=== PATIENT | male | born 1940 | race African-American/Black ===

== ENCOUNTER 2019-01-25 18:04 | Inpatient (IN) | payer OTHER ==
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
[2019-01-25 20:10] LABS: ARTERIAL BLD GAS O2 SATURATION 56.9 % (95-98); ARTERIAL BLOOD GAS BASE EXCESS 5.6 meq/l (-2-2); ARTERIAL BLOOD GAS pH 7.26 (7.35-7.45)
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
[2019-01-25 20:15] LABS: ARTERIAL BLOOD GAS PCO2 76.8 mmHg (35-45)
[2019-01-25 20:16] LABS: ARTERIAL BLOOD GAS PO2 36.9 mmHg (80-105)
[2019-01-25 20:21] LABS: ALLENS TEST POSITIVE
[2019-01-25 23:32] LABS: BASO % 0.2 % (0-2.0); HEMATOCRIT 29.3 % (35.4-49); HEMOGLOBIN 9.3 GM/dL (11.7-16.9); LYMPH % 31.9 % (8-40); MCH 27.8 pg (25.7-33.7); MCHC 31.9 g/dl (32.0-35.9); MEAN PLT VOLUME 7.3 fl (7.5-11.1); MONO % 12.9 % (3.8-10.2); PLATELET COUNT 305 K/MM3 (134-434); RBC 3.37 M/mm3 (4.00-5.60); RDW 17.4 % (11.9-15.9); WHITE BLOOD COUNT 4.4 K/mm3 (4.0-10.0)
[2019-01-25 23:38] LABS: ARTERIAL BLOOD GAS BASE EXCESS 5.6 meq/l (-2-2); ARTERIAL BLOOD GAS PO2 89.3 mmHg (80-105); ARTERIAL BLOOD GAS pH 7.28 (7.35-7.45); CARBOXYHEMOGLOBIN 1.8 % (0-2)
[2019-01-25 23:48] LABS: ARTERIAL BLOOD GAS PCO2 73.4 mmHg (35-45)
[2019-01-25 23:49] LABS: ALLENS TEST POSITIVE
[2019-01-25 23:52] LABS: ALBUMIN 2.4 g/dl (3.4-5.0); ALK PHOS 69 U/L (45-117); ANION GAP 2 MMOL/L (8-16); BILIRUBIN,TOTAL 0.3 mg/dL (0.2-1); BLOOD UREA NITROGEN 11 mg/dL (7-18); CALCIUM 8.1 mg/dL (8.5-10.1); CHLORIDE 102 mmol/L (98-107); CO2 34 mmol/L (21-32); CREATININE 0.6 mg/dL (0.55-1.3); GLUCOSE,RANDOM 68 mg/dL (74-106); N-TERMINAL BNP 1295.9 pg/ml (5-450); POTASSIUM 4.5 mmol/L (3.5-5.1); SGOT/AST 19 U/L (15-37); SGPT/ALT 13 U/L (13-61); SODIUM 139 mmol/L (136-145); TOT PROT 7.7 g/dl (6.4-8.2)
[2019-01-26 00:12] LABS: INR 1.21 (0.83-1.09); PROTHROMBIN TIME (PATIENT) 14.3 SEC (9.7-13.0)
[2019-01-26 00:15] LABS: ACTIVATED PTT 69.9 SECONDS (25.2-36.5)
--- NOTE | 2019-01-26 01:27 | PN ---
Teaching Attending Note Name of Resident: Mathew Garsia ATTENDING PHYSICIAN STATEMENT I saw and evaluated the patient. I reviewed the resident's note and discussed the case with the resident. I agree with the resident's findings and plan as documented. SUBJECTIVE: Seen and examined; please refer to resident note for further historical information. Briefly, patient is a 78 y/o male who was sent in by his PCP for low O2 sat 84% in the office. He has some SOB worse with exertion, change in his sputum to yellow, and increased cough. No recent abx, etc. He is a current heroin abuser and is on methadone 70 QD and his last heroin use was yesterday. He is noted to have LE edema with concurrent venous stasis changes and he is furthermore noted that he is on home lasix. He has an elevated BNP. He does have CAD and was stented ~1yr ago and is on ASA and plavix. He is, unfortunately, a poor historian and his family left (who provided hx for resident and ED) so I didn't have a chance to confirm it. He was placed on BiPap when he got to the ER and was given a dose of lasix and some nebs and he improved; CT chest shows multiple nodular infiltrates and advanced emphysematous changes that are likely infectious vs. malignant per the prelim read. He was weaned from BiPap and is satting high 90s on NC. 10 sys ROS done and negative aside from HPI PMH, PSH, Family Hx, Social Hx reviewed Medication list reviewed; pending reconciliation Home Medications Medication Instructions Recorded Albuterol Sulfate Inhaler - 1 - 2 inh PO QID PRN 04/11/14 [Ventolin HFA Inhaler -] Atorvastatin Calcium 80 mg PO DAILY 01/26/19 Clopidogrel Bisulfate [Plavix -] 75 mg PO DAILY 01/26/19 Ferrous Sulfate 325 mg PO ASDIR 01/26/19 Furosemide [Lasix -] 40 mg PO DAILY 01/26/19 Metoprolol Tartrate [Lopressor -] 25 mg PO BID 01/26/19 Multivitamins [Tab-A-Vit -] 1 tab PO DAILY 01/26/19 OBJECTIVE: VS, labs, imaging reviewed NAD, AAO, Resting in bed off BiPap NC AT EOMI; some temporal wasting B/l wheezes with some scattered mild rales with no focal consolidation; w/ sym exp NT ND +BS RRR s1/2 no mgr CN2-12 wnl, no fnd Normal mood, appropriate affect, poor insight and difficult to understand speech Prelim CT shows advanced emphysematous changes with multiple nodular infiltrates that could be infectious, but with some nodular components what could lead to consideration of underlying neoplasm ASSESSMENT AND PLAN: Patient presented with mixed respiratory failure found to be desatting in PCP office; now weaned off BiPap. He is hemodynamically stable and afebrile. Cause of his respiratory issues likely COPD exacerbation with fluid overload +/ - CAP vs. underlying malignancy 1) Acute Respiratory Failure -Improved; based on ABG and hx has a strong chronic component to his respiratory failure with some acute input. -PRN O2; I suspect he will need to be on alf O2 and he should be checked for this prior to DC -Treat underlying conditions (to be addressed separately) 2) Acute COPD Exacerbation -PRN O2; PO prednisone 60 QD, doxycycline PO given prolonged QTc, ATC duonebs and PRN albuterol -Consulting pulmonary medicine (Dr. Cruz) for medication optimization. He will need LABA/LAMA, etc. on DC most likely. No PFTs available. -Counseled to stop smoking 3) Acute CHF Exacerbation -Elevated BNP, edema. Monitor strict Is and Os, daily weights. Low sodium diet and fluid restriction. -Lasix 40 IV QD and consider CV consult; checking echo. Want to obtain old records (he is unsure of the name of his primry CV and hasn't followed up with him in 'a while') -Consider switching MT to MS and adding GIN/ARB as BP and renal function permits. Depending on severity of CHF can also consider spironolactone and hydralazine. -Given his stated history of stenting would assume ischemic cardiomyopathy though he has multiple risk factors for NICM. Need to obtain additional info. 4) Nodular infiltrates (PNA vs. malignancy) -Seen on prelim CT chest; followup final read. Does have productive cough but notably he is afebrile with a normal white count. -Empirically covering with ceftriaxone and azithro for CAP and will also consult oncology. Pulmonary is also following and we will defer further diagnostic testing to their service. -Followup sputum cx, blood cx, urine Ag, influenza, viral pcr 5) Heroin Abuse -Confirm and continue methadone, encourage cessasion -Checking Hep C and HIV screen 6) Cocaine abuse -At risk for NICM and sudden cardiac ; no current chest pain. Could have precipitated CHF. 7) Tobacco abuse -Encourage cesssion 8) Hypoalbuminemia -Check prealbumin and consider nutrition consult 9) Normocytic anemia -Trend CBC when inpatient; consider checking iron studies inpt vs. outpt 10) Hx CAD -States he was stented last year; continue ASA, statin, BB, and plavix. Obtain old records when he finds out who his OP cardio is. No chest pain. Has multiple risk factors. FENA -2l fluid restriction -PRN replete; optimize Mg and K -Cardiac Diet with low salt -As tolerated Full Code
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
[2019-01-26] MEDS ORDERED: ALBUTEROL SO4 8 GM HFA INHALER IH PRN (02:40)
[2019-01-26] MEDS ORDERED: DEXTROSE 50%-WATER - 25 GM/50 ML VIAL IVPUSH ONE (02:42)
[2019-01-26] MEDS ORDERED: FUROSEMIDE 40 MG/4 ML INJECTABLE VIAL IVPUSH ONE (02:43)
[2019-01-26] MEDS ORDERED: ALBUTEROL SO4 2.5/IPRATROPIUM 0.5 INH SOL 3 ML VIAL.NEB. NEB PRN (02:45)
[2019-01-26] MEDS ORDERED: FUROSEMIDE 40 MG/4 ML INJECTABLE VIAL ONE (02:49)
[2019-01-26 03:59] LABS: BASO % 0.3 % (0-2.0); EOS % 0.6 % (0-4.5); HEMATOCRIT 30.8 % (35.4-49); HEMOGLOBIN 9.8 GM/dL (11.7-16.9); LYMPH % 20.1 % (8-40); MCH 27.7 pg (25.7-33.7); MCHC 31.7 g/dl (32.0-35.9); MEAN CELL VOLUME 87.2 fl (80-96); MEAN PLT VOLUME 7.4 fl (7.5-11.1); MONO % 8.9 % (3.8-10.2); NEUT % 70.1 % (42.8-82.8); PLATELET COUNT 323 K/MM3 (134-434); RBC 3.53 M/mm3 (4.00-5.60); RDW 17.9 % (11.9-15.9); WHITE BLOOD COUNT 6.2 K/mm3 (4.0-10.0)
[2019-01-26 04:27] LABS: ALBUMIN 2.5 g/dl (3.4-5.0); ALK PHOS 72 U/L (45-117); ANION GAP 3 MMOL/L (8-16); BILIRUBIN,TOTAL 0.6 mg/dL (0.2-1); BLOOD UREA NITROGEN 11 mg/dL (7-18); CALCIUM 8.2 mg/dL (8.5-10.1); CHLORIDE 99 mmol/L (98-107); CO2 34 mmol/L (21-32); CREATININE 0.6 mg/dL (0.55-1.3); GLUCOSE,RANDOM 123 mg/dL (74-106); POTASSIUM 3.9 mmol/L (3.5-5.1); SGOT/AST 18 U/L (15-37); SGPT/ALT 13 U/L (13-61); SODIUM 136 mmol/L (136-145); TOT PROT 8.2 g/dl (6.4-8.2)
[2019-01-26] MEDS: METOPROLOL TARTRATE 25 MG TABLET (FP) PO SCH ×2 (09:40→22:32)
[2019-01-26] MEDS: guaiFENesin 600 MG TABLET.ER (FP) PO SCH ×2 (09:40→22:34)
[2019-01-26] MEDS: predniSONE 20 MG TABLET (UD) PO SCH (09:40)
[2019-01-26] MEDS ORDERED: CEFTRIAXONE 1 GM/50 ML BAG ONE (09:42)
[2019-01-26 09:45] LABS: INR 1.17 (0.83-1.09); PROTHROMBIN TIME (PATIENT) 13.8 SEC (9.7-13.0)
[2019-01-26 09:53] LABS: ARTERIAL BLD GAS O2 SATURATION 97.6 % (95-98); ARTERIAL BLOOD GAS BASE EXCESS 8.8 meq/l (-2-2); ARTERIAL BLOOD GAS PCO2 63.1 mmHg (35-45); ARTERIAL BLOOD GAS PO2 99.6 mmHg (80-105); ARTERIAL BLOOD GAS pH 7.37 (7.35-7.45)
[2019-01-26 09:55] LABS: ALLENS TEST POSITIVE
[2019-01-26] MEDS: NICOTINE 21 MG/24 HOURS TOPICAL PATCH TD SCH (10:00)
[2019-01-26] MEDS ORDERED: CEFTRIAXONE 1 GM in DEXTROSE 5%-WATER - 100 ML IVPB SCH (10:00)
[2019-01-26] MEDS ORDERED: AZITHROMYCIN 250 MG TABLET PO SCH (10:00)
[2019-01-26] MEDS ORDERED: DOXYCYCLINE INJECTION 100 MG in DEXTROSE 5%-WATER - 100 ML IVPB ONE (10:00)
[2019-01-26] MEDS ORDERED: DOXYCYCLINE INJECTION 100 MG in DEXTROSE 5%-WATER - 100 ML IVPB SCH (10:00)
[2019-01-26] MEDS ORDERED: FUROSEMIDE 40 MG/4 ML INJECTABLE VIAL IVPB SCH (10:00)
[2019-01-26] MEDS: POLYETHYLENE GLYCOL 3350 119 GM BTL PO SCH (10:00)
[2019-01-26] MEDS: CEFTRIAXONE 1 GM in DEXTROSE 5%-WATER - 50 ML IVPB SCH (10:11)
--- NOTE | 2019-01-26 10:24 | PN ---
Physical Exam: SUBJECTIVE: Patient seen and examined at bedside- no acute events overnight; patient states that he is feeling better thinks that his breathing has improved ; he denies any CP/SOB/N/V fevers or chills just complains that he is hungry OBJECTIVE: Vital Signs Period Temp Pulse Resp BP Sys/Joseph Pulse Ox Last 24 Hr 97.9 F-98.6 F 73-92 20-20 122-149/74-87 84-100 GENERAL: The patient is awake, alert, and fully oriented, in no acute distress. EYES: PEERLA: EOMI; no scleral icterus NECK: no JVD: no lymphadenopathy. LUNGS:B/L wheezes with slight crackles at base HEART: Regular rate and rhythm, S1, S2 without murmur, rub or gallop. ABDOMEN: Soft, nontender, nondistended, normoactive bowel sounds, no guarding, no rebound, no hepatosplenomegaly, no masses. EXTREMITIES: 2+ pulses, warm, well-perfused, no edema. PSYCH: Normal mood, normal affect. SKIN: Warm, dry, normal turgor, no rashes or lesions noted Laboratory Results - last 24 hr 01/25/19 01/25/19 01/25/19 19:50 20:00 22:07 WBC RBC Hgb Hct MCV MCH MCHC RDW Plt Count MPV Absolute Neuts (auto) Neutrophils % Lymphocytes % Monocytes % Eosinophils % Basophils % Nucleated RBC % PT with INR INR PTT (Actin FS) Anticoagulation Therapy No Result Required. Puncture Site Right radial Right radial ABG pH 7.26 L 7.28 L ABG pCO2 at Pt Temp 76.8 H* 73.4 H* ABG pO2 at Pt Temp 36.9 L* 89.3 ABG HCO3 33.6 H 33.2 H ABG O2 Sat (Measured) 56.9 L 96.0 ABG O2 Content 6.9 L* 11.8 L ABG Base Excess 5.6 H 5.6 H Luca Test Positive Positive Carboxyhemoglobin 2.0 1.8 Methemoglobin 0.6 0.2 O2 Delivery Device No Result Required. Bipap Oxygen Flow Rate Yes 40 Vent Mode No Result Required. S/t Vent Rate No Result Required. 14 Mechanical Rate No Result Required. PEEP 5.0 Pressure Support Vent No Result Required. 10 Sodium Potassium Chloride Carbon Dioxide Anion Gap BUN Creatinine Creat Clearance w eGFR POC Glucometer Random Glucose Calcium Phosphorus Magnesium Ferritin Total Bilirubin AST ALT Alkaline Phosphatase Creatine Kinase Troponin I B-Natriuretic Peptide Total Protein Albumin Influenza A (Rapid) Influenza B (Rapid) RSV Rapid 01/25/19 01/25/19 01/25/19 22:40 22:40 22:40 WBC 4.4 RBC 3.37 L Hgb 9.3 L Hct 29.3 L MCV 87.0 MCH 27.8 MCHC 31.9 L RDW 17.4 H Plt Count 305 MPV 7.3 L Absolute Neuts (auto) 2.4 Neutrophils % 54.0 Lymphocytes % 31.9 D Monocytes % 12.9 H Eosinophils % 1.0 Basophils % 0.2 Nucleated RBC % 0 PT with INR 14.30 H INR 1.21 H PTT (Actin FS) 69.9 H Anticoagulation Therapy Puncture Site ABG pH ABG pCO2 at Pt Temp ABG pO2 at Pt Temp ABG HCO3 ABG O2 Sat (Measured) ABG O2 Content ABG Base Excess Luca Test Carboxyhemoglobin Methemoglobin O2 Delivery Device Oxygen Flow Rate Vent Mode Vent Rate Mechanical Rate PEEP Pressure Support Vent Sodium 139 Potassium 4.5 Chloride 102 Carbon Dioxide 34 H Anion Gap 2 L BUN 11 Creatinine 0.6 Creat Clearance w eGFR 130.30 POC Glucometer Random Glucose 68 L Calcium 8.1 L Phosphorus Magnesium Ferritin Total Bilirubin 0.3 AST 19 ALT 13 Alkaline Phosphatase 69 Creatine Kinase 83 Troponin I < 0.02 B-Natriuretic Peptide 1295.9 H Total Protein 7.7 Albumin 2.4 L Influenza A (Rapid) Influenza B (Rapid) RSV Rapid 01/26/19 01/26/19 01/26/19 02:36 03:05 03:05 WBC 6.2 RBC 3.53 L Hgb 9.8 L Hct 30.8 L MCV 87.2 MCH 27.7 MCHC 31.7 L RDW 17.9 H Plt Count 323 MPV 7.4 L Absolute Neuts (auto) 4.3 Neutrophils % 70.1 D Lymphocytes % 20.1 D Monocytes % 8.9 Eosinophils % 0.6 Basophils % 0.3 Nucleated RBC % 0 PT with INR INR PTT (Actin FS) Anticoagulation Therapy Puncture Site ABG pH ABG pCO2 at Pt Temp ABG pO2 at Pt Temp ABG HCO3 ABG O2 Sat (Measured) ABG O2 Content ABG Base Excess Luca Test Carboxyhemoglobin Methemoglobin O2 Delivery Device Oxygen Flow Rate Vent Mode Vent Rate Mechanical Rate PEEP Pressure Support Vent Sodium Potassium Chloride Carbon Dioxide Anion Gap BUN Creatinine Creat Clearance w eGFR POC Glucometer 66 Random Glucose Calcium Phosphorus Magnesium Ferritin Total Bilirubin AST ALT Alkaline Phosphatase Creatine Kinase Troponin I < 0.02 B-Natriuretic Peptide Total Protein Albumin Influenza A (Rapid) Influenza B (Rapid) RSV Rapid 01/26/19 01/26/19 01/26/19 03:05 06:20 06:20 WBC RBC Hgb Hct MCV MCH MCHC RDW Plt Count MPV Absolute Neuts (auto) Neutrophils % Lymphocytes % Monocytes % Eosinophils % Basophils % Nucleated RBC % PT with INR INR PTT (Actin FS) Anticoagulation Therapy Puncture Site ABG pH ABG pCO2 at Pt Temp ABG pO2 at Pt Temp ABG HCO3 ABG O2 Sat (Measured) ABG O2 Content ABG Base Excess Luca Test Carboxyhemoglobin Methemoglobin O2 Delivery Device Oxygen Flow Rate Vent Mode Vent Rate Mechanical Rate PEEP Pressure Support Vent Sodium 136 Potassium 3.9 Chloride 99 Carbon Dioxide 34 H Anion Gap 3 L BUN 11 Creatinine 0.6 Creat Clearance w eGFR 130.30 POC Glucometer Random Glucose 123 H Calcium 8.2 L Phosphorus Magnesium 2.0 Ferritin Total Bilirubin 0.6 AST 18 ALT 13 Alkaline Phosphatase 72 Creatine Kinase Troponin I B-Natriuretic Peptide Total Protein 8.2 Albumin 2.5 L Influenza A (Rapid) Negative Influenza B (Rapid) Negative RSV Rapid Negative 01/26/19 01/26/19 01/26/19 09:15 09:15 09:15 WBC RBC Hgb Hct MCV MCH MCHC RDW Plt Count MPV Absolute Neuts (auto) Neutrophils % Lymphocytes % Monocytes % Eosinophils % Basophils % Nucleated RBC % PT with INR 13.80 H INR 1.17 H PTT (Actin FS) 68.0 H Anticoagulation Therapy Puncture Site ABG pH ABG pCO2 at Pt Temp ABG pO2 at Pt Temp ABG HCO3 ABG O2 Sat (Measured) ABG O2 Content ABG Base Excess Luca Test Carboxyhemoglobin Methemoglobin O2 Delivery Device Oxygen Flow Rate Vent Mode Vent Rate Mechanical Rate PEEP Pressure Support Vent Sodium Potassium Chloride Carbon Dioxide Anion Gap BUN Creatinine Creat Clearance w eGFR POC Glucometer Random Glucose Calcium Phosphorus 4.1 Magnesium Ferritin 27.0 Total Bilirubin AST ALT Alkaline Phosphatase Creatine Kinase Troponin I B-Natriuretic Peptide Total Protein Albumin Influenza A (Rapid) Influenza B (Rapid) RSV Rapid 01/26/19 01/26/19 09:15 09:43 WBC RBC Hgb Hct MCV MCH MCHC RDW Plt Count MPV Absolute Neuts (auto) Neutrophils % Lymphocytes % Monocytes % Eosinophils % Basophils % Nucleated RBC % PT with INR INR PTT (Actin FS) Anticoagulation Therapy No Result Required. Puncture Site Right radial ABG pH 7.37 ABG pCO2 at Pt Temp 63.1 H ABG pO2 at Pt Temp 99.6 ABG HCO3 35.3 H ABG O2 Sat (Measured) 97.6 ABG O2 Content 13.2 L ABG Base Excess 8.8 H Luca Test Positive Carboxyhemoglobin Methemoglobin O2 Delivery Device No Result Required. Oxygen Flow Rate Yes Vent Mode No Result Required. Vent Rate No Result Required. Mechanical Rate No Result Required. PEEP Pressure Support Vent No Result Required. Sodium Potassium Chloride Carbon Dioxide Anion Gap BUN Creatinine Creat Clearance w eGFR POC Glucometer Random Glucose Calcium Phosphorus Magnesium Ferritin Total Bilirubin AST ALT Alkaline Phosphatase Creatine Kinase Troponin I < 0.02 B-Natriuretic Peptide Total Protein Albumin Influenza A (Rapid) Influenza B (Rapid) RSV Rapid Active Medications Generic Name Dose Route Start Last Admin Trade Name Freq PRN Reason Stop Dose Admin Albuterol Sulfate 2 puff 01/26/19 02:40 Ventolin Hfa Inhaler - IH QID PRN ASTHMA Albuterol/Ipratropium 1 amp 01/26/19 02:45 Duoneb - NEB Q4H PRN SHORTNESS OF BREATH Atorvastatin Calcium 80 mg 01/26/19 22:00 Lipitor - PO HS SHAWN Budesonide/Formoterol Fumarate 2 puff 01/26/19 10:00 Symbicort 160/4.5mcg - IH BID SHAWN Clopidogrel Bisulfate 75 mg 01/26/19 10:00 Plavix - PO DAILY SHAWN Enoxaparin Sodium 40 mg 01/26/19 10:00 Lovenox - SQ DAILY SHAWN Furosemide 40 mg 01/26/19 10:00 01/26/19 10:10 Lasix Injection - IVPB 40 mg DAILY SHAWN Administration Guaifenesin 600 mg 01/26/19 10:00 01/26/19 09:40 Mucinex - PO 600 mg BID SHAWN Administration Doxycycline Hyclate 100 mg/ 100 mls @ 50 mls/hr 01/26/19 10:00 Dextrose IVPB BID SHAWN Ceftriaxone Sodium 1 gm/ 50 mls @ 100 mls/hr 01/26/19 10:00 01/26/19 10:11 Dextrose IVPB 100 mls/hr DAILY SHAWN Administration Protocol Metoprolol Tartrate 25 mg 01/26/19 10:00 01/26/19 09:40 Lopressor - PO 25 mg BID SHAWN Administration Nicotine 21 mg 01/26/19 10:00 01/26/19 10:00 Nicoderm Patch - TD Not Given DAILY SHAWN Polyethylene Glycol 17 gm 01/26/19 10:00 01/26/19 10:00 Miralax (For Daily Use) - PO Not Given DAILY SHAWN Prednisone 60 mg 01/26/19 10:00 01/26/19 09:40 Deltasone - PO 60 mg DAILY SHAWN Administration Senna 2 tab 01/26/19 22:00 Senna - PO HS SHAWN ASSESSMENT/PLAN: 78 year old male (current smoker- 10 cigarettes per day), with PMH of heroin dependency 2-3 bags daily , HTN, HLD, COPD, 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 # Acute on chronic hypoxic hypercapnic resp failure likely due to copd exacerbation vs CHF exacerbation R/o PNA and malignancy * ABG this AM improving: PH 7.37, PCO2 63.1 HCO3 35.3 * duo neb , Albuterol * Symbicort BID * CXR pending official reading * CT chest done showing severe COPD w/ areas of consolidation and scattered bullae likely chronic however cannot exclude acute infection /malignancy * BIPAP as needed to keep O2 sat > 90 % * BNP 71105 : given lasix 40 once in ED- not continuing home lasix as this is COPD exacerbation not CHF * Echo done showing EF 40-45%; severe inferolateral hypokinesis; normal RV function; mild MR, mild TR no effusion seen * ceftriaxone 1 gram daily , doxycycline 100 BID as has prolonged QTC * mucinex 600 BID * prednisone 60 po daily * pulmonary consult Dr Cruz # normocytic Anemia * H/H 9.3/29.3 * no active bleeding * likely due to chronic disease vs low intake * iron studies , Ferritin * FOBT * # History of Hep c per old records * f.o out pt * no transaminitis no abdominal pain * Hep C PCR * hIV screening # HTN * c/w lopressor 25 BID # HLD * c/w Atorvastatin 80 mg daily * # CAD s/p stent * Cont ASA , plavix * cont metoprolol tartarate 25 BID * obtain records * # Heroin dependence * 2-3 bags heroin daily , * On methadone 70 mg (verified this AM) * consult detox * # tobacco dependence * 1/2 PPD * nicotine patch * # FEN * F: no standing fluids * E: monitor lytes * N: low sodium diet Problem List - Problems (1) Acute hypercapnic respiratory failure Code(s): J96.02 - ACUTE RESPIRATORY FAILURE WITH HYPERCAPNIA (2) COPD (chronic obstructive pulmonary disease) Code(s): J44.9 - CHRONIC OBSTRUCTIVE PULMONARY DISEASE, UNSPECIFIED Qualifiers: COPD type: unspecified COPD Qualified Code(s): J44.9 - Chronic obstructive pulmonary disease, unspecified (3) Hepatitis C Code(s): B19.20 - UNSPECIFIED VIRAL HEPATITIS C WITHOUT HEPATIC COMA Qualifiers: Viral hepatitis chronicity: chronic (4) Nicotine dependence Code(s): F17.200 - NICOTINE DEPENDENCE, UNSPECIFIED, UNCOMPLICATED Qualifiers: Nicotine product type: cigarettes Visit type - Emergency Visit Emergency Visit: Yes ED Registration Date: 01/25/19 Care time: The patient presented to the Emergency Department on the above date and was hospitalized for further evaluation of their emergent condition. - New Patient This patient is new to me today: Yes Date on this admission: 01/26/19 - Critical Care Critical Care patient: No
[2019-01-26] MEDS: CLOPIDOGREL BISULFATE 75 MG TABLET (FP) PO SCH (10:31)
[2019-01-26] MEDS: ENOXAPARIN NA (PORCINE) 40 MG/0.4 ML DISP.SYRIN SQ SCH (10:31)
[2019-01-26] MEDS: BUDESONIDE/FORMETEROL FUMARATE 160/4.5 mcg INHALER IH SCH ×2 (10:32→22:50)
--- NOTE | 2019-01-26 10:37 | ECHO ---
Name: JS PALM Exam:Adult Echocardiogram Study Date: 01/26/2019 07:47 AM Age: 78 yrs Reason For Study: CHF Height: 69 in Weight: 120 lb BSA: 1.7 m2 MMode/2D Measurements & Calculations IVSd: 0.85 cm Ao root diam: 3.7 cm LVIDd: 4.8 cm LA dimension: 3.0 cm LVIDs: 3.8 cm LVPWd: 0.84 cm EDV(Teich): 107.7 ml LVOT diam: 2.6 cm ESV(Teich): 60.3 ml Doppler Measurements & Calculations MV E max mani: 78.5 cm/sec AI P1/2t: 581.9 msec MV A max mani: 92.3 cm/sec MV E/A: 0.85 MV dec time: 0.33 sec AI max mani: 344.2 cm/sec TR max mani: 311.6 cm/sec AI max P.4 mmHg TR max P.9 mmHg AI dec slope: 173.2 cm/sec2 Med Peak E' Mani: 2.9 cm/sec Med E/e': 27.5 Lat Peak E' Mani: 7.1 cm/sec Lat E/e': 11.0 Left Ventricle Ejection Fraction = 40-45%. Severe inferolateral hypokinesis. Right Ventricle The right ventricle is normal in size and function. Atria Normal left and right atrial size and function. Mitral Valve The mitral valve is grossly normal. There is no mitral valve stenosis. There is mild mitral regurgita tion. Tricuspid Valve The tricuspid valve is normal in structure and function. There is mild tricuspid regurgitation. Right ventricular systolic pressure is elevated at 40-50mmHg. Aortic Valve The aortic valve is trileaflet. No hemodynamically significant valvular aortic stenosis. Mild aortic regurgitation. Pulmonic Valve The pulmonic valve is not well seen, but is grossly normal. There is no pulmonic valvular stenosis. Great Vessels Mild aortic root dilatation. Pericardium/Pleura There is no pericardial effusion. Interpretation Summary Ejection Fraction = 40-45%. Severe inferolateral hypokinesis. Mild aortic root dilatation. The right ventricle is normal in size and function. There is mild mitral regurgitation. There is mild tricuspid regurgitation. Right ventricular systolic pressure is elevated at 40-50mmHg. Mild aortic regurgitation. There is no pericardial effusion. MD Urias *Lakshmi 01/26/2019 10:37 AM
--- NOTE | 2019-01-26 10:58 | EKG ---
Test Reason : Blood Pressure : / mmHG Vent. Rate : 073 BPM Atrial Rate : 073 BPM P-R Int : 164 ms QRS Dur : 078 ms QT Int : 460 ms P-R-T Axes : 048 034 068 degrees QTc Int : 506 ms POOR DATA QUALITY, INTERPRETATION MAY BE ADVERSELY AFFECTED NORMAL SINUS RHYTHM PROLONGED QT ABNORMAL ECG Confirmed by GAMALIEL LOPEZ MD ([id number]) on 01/26/2019 10:58:12 AM Referred By: Confirmed By:GAMALIEL LOPEZ MD
--- NOTE | 2019-01-26 11:03 | EKG ---
Test Reason : Blood Pressure : / mmHG Vent. Rate : 080 BPM Atrial Rate : 080 BPM P-R Int : 162 ms QRS Dur : 082 ms QT Int : 430 ms P-R-T Axes : 058 075 087 degrees QTc Int : 495 ms NORMAL SINUS RHYTHM WITH SINUS ARRHYTHMIA POSSIBLE LEFT ATRIAL ENLARGEMENT PROLONGED QT ABNORMAL ECG Confirmed by GAMALIEL LOPEZ MD ([id number]) on 01/26/2019 11:03:32 AM Referred By: Confirmed By:GAMALIEL LOPEZ MD
[2019-01-26] MEDS ORDERED: METHADONE HCL 10 MG TABLET PO SCH (11:06)
--- NOTE | 2019-01-26 17:15 | CON.PULM ---
Consult Consult Specialty:: PULMONARY Referred by:: JADON Reason for Consultation:: HYPOXIC - History of Present Illness History of Present Illness: patient is a 78 y/o male who was sent in by his PCP for low O2 sat 84%, sob worse with exertion, change in his sputum to yellow, and increased cough. 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 He has h/o CAD and was stented ~1yr ago and is on ASA and plavix. He was placed on BiPap when he got to the ER and was given a dose of lasix and nebs. - History Source History Provided By: Medical Record Limitations to Obtaining History: Clinical Condition - Past Medical History Cardio/Vascular: Yes: CAD, Other (STENTS) Pulmonary: Yes: COPD, Pneumonia. No: O2 Dependent Heme/Onc: Yes: Anemia Psych: Yes: Addictions - Alcohol/Substance Use Hx Alcohol Use: No - Smoking History Smoking history: Current every day smoker Have you smoked in the past 12 months: Yes Aproximately how many cigarettes per day: 10 - Social History Usual Living Arrangement: Other Place of : [facility] History of Recent Travel: No Home Medications - Allergies Allergies/Adverse Reactions: Allergies Allergy/AdvReac Type Severity Reaction Status Date / Time No Known Allergies Allergy Verified 01/26/19 02:11 - Home Medications Home Medications: Ambulatory Orders Albuterol Sulfate Inhaler - [Ventolin HFA Inhaler -] 1 - 2 inh PO QID PRN Atorvastatin Calcium 80 mg PO DAILY 01/26/19 Clopidogrel Bisulfate [Plavix -] 75 mg PO DAILY 01/26/19 Ferrous Sulfate 325 mg PO ASDIR 01/26/19 Furosemide [Lasix -] 40 mg PO DAILY 01/26/19 Metoprolol Tartrate [Lopressor -] 25 mg PO BID 01/26/19 Multivitamins [Tab-A-Vit -] 1 tab PO DAILY 01/26/19 Family Disease History - Family Disease History Family History: Unable to Obtain Review of Systems Unable to obtain ROS, reason: UNABLE TO OBTAIN Physical Exam Vital Sings: Vital Signs Temperature 97.9 F 01/26/19 15:57 Pulse Rate 90 01/26/19 15:57 Respiratory Rate 18 01/26/19 15:57 Blood Pressure 146/94 01/26/19 15:57 O2 Sat by Pulse Oximetry (%) 100 01/26/19 16:41 Constitutional: Yes: Cachectic, Poor Hygeine, Other (LETHARGIC) Eyes: Yes: EOM Intact HENT: Yes: Normocephalic Neck: Yes: Trachea Midline Cardiovascular: Yes: S1, S2 Respiratory: Yes: Diminished Gastrointestinal: Yes: Normal Bowel Sounds Edema: No Neurological: Yes: Lethargy, Pre-Existing Deficit, Weakness Labs: CBC, BMP 01/26/19 03:05 01/26/19 03:05 ABG Results ABG pH 7.37 (7.35-7.45) 01/26/19 09:43 ABG pCO2 at Pt Temp 63.1 mmHg (35-45) H 01/26/19 09:43 ABG pO2 at Pt Temp 99.6 mmHg (80-105) 01/26/19 09:43 ABG HCO3 35.3 mmol/L (22-27) H 01/26/19 09:43 ABG O2 Sat (Measured) 97.6 % (95-98) 01/26/19 09:43 ABG O2 Content 13.2 % vol (15-22) L 01/26/19 09:43 ABG Base Excess 8.8 meq/l (-2-2) H 01/26/19 09:43 REST REVIEWED Imaging - Results Chest X-ray: Report Reviewed, Image Reviewed Cat Scan: Report Reviewed, Image Reviewed Problem List - Problems (1) Heroin addiction Code(s): F11.20 - OPIOID DEPENDENCE, UNCOMPLICATED (2) Acute hypercapnic respiratory failure Code(s): J96.02 - ACUTE RESPIRATORY FAILURE WITH HYPERCAPNIA (3) COPD (chronic obstructive pulmonary disease) Code(s): J44.9 - CHRONIC OBSTRUCTIVE PULMONARY DISEASE, UNSPECIFIED Qualifiers: COPD type: unspecified COPD Qualified Code(s): J44.9 - Chronic obstructive pulmonary disease, unspecified (4) Hepatitis C Code(s): B19.20 - UNSPECIFIED VIRAL HEPATITIS C WITHOUT HEPATIC COMA Qualifiers: Viral hepatitis chronicity: chronic (5) Nicotine dependence Code(s): F17.200 - NICOTINE DEPENDENCE, UNSPECIFIED, UNCOMPLICATED Qualifiers: Nicotine product type: cigarettes (6) Opioid dependence with withdrawal Code(s): F11.23 - OPIOID DEPENDENCE WITH WITHDRAWAL Assessment/Plan ACUTE ON CHRONIC HYPERCAPNEIC RESP FAILURE COPD/ACTIVE SMOKER HERION ABUSE/METHADONE MAINTENANCE ASHD/CAD S/P PCI STENT WILL LIKELY NEED NIPPV/O2 SUPPLEMENTATION/BRONCHODILATION/TAPER STEROIDS/ TRIAL OF ANTIBIOTICS/AVOID OVERSEDATION/DVT PROPHYLAXSIS Arnie MONTERROSO MD
--- NOTE | 2019-01-26 17:25 | PN ---
Teaching Attending Note Name of Resident: Nena Waldron ATTENDING PHYSICIAN STATEMENT I saw and evaluated the patient. I reviewed the resident's note and discussed the case with the resident. I agree with the resident's findings and plan as documented. SUBJECTIVE: Seen at 11 am He reports cough with SOB with white putum production x 2 weeks. worse in last few days. no LE edema , but he has old bustos and this did not change. he continue to smoke and to sniff heroin. Family , step daughter, confirms that dad is at [place] OBJECTIVE: NAD, knows location, month, year and president. knows age Cv: RRR, no MRg, no JVD lungs: very poor air entry , no wheezing or crackles Ext : scarred skin with trace edema on legs . R foot with scaly thick skin, with no skin break down or fungal infection. refused exam of L foot declined Abd exam . ASSESSMENT AND PLAN: 78 y/o man with h/o COPD, active smoking, active heroin use while on Methadone, CAD , s/p stenting, who presented with hypoxia . he was found to have acuete hypoxic hypercapnic respiratory failure 1- Acute hypoxic , hypercapnic resp failure due to acute COPD exacerbation. He does not have any signs of fluid overload . Ct scan images and report reviewed, and might indicate infiltrates vs scarring and chronic changes. - will treat COPD exacerbation with steroids, Nebs and Inhalers - dc lasix - echo pending - BIPAP as needed and HS . - get ABG for increased lethargy PRN - Abx; ceftriaxone and doxy due to prolonged QTc 508 . 2- heroin abuse. while on methadone 70 mg - will cont his home dose for now. - he is not interested in any counseling - will get substance abuse consult to advise on ? detox Vs cont home dose of methadone 3- Prolonged QTC: due to methadone and heroin use. - avoid meds that can worsen it 4- Normocytic anemia: add B12 and folic to iron studies DVT PX HLOC
[2019-01-26] MEDS ORDERED: PT OWN MED DRAWER 7, Y5N ONE (17:26)
[2019-01-26] MEDS ORDERED: METHADONE HCL 40 MG DISPERSABLE TABLET ONE (17:48)
[2019-01-26] MEDS ORDERED: METHADONE HCL 10 MG TABLET ONE (17:48)
[2019-01-26] MEDS: METHADONE 40 MG, METHADONE 30 MG PO SCH (17:49)
--- NOTE | 2019-01-26 18:38 | CONSULT ---
Consult - text type - Consultation Consultation Note: NEUROLOGY CONSULTATION is greatly appreciated: This 78 yo RH man with h/o ASHD, s/p stents and COPD continues to smoke. On methadone (70 mg) and snorts heroin. Brought in by family due to lethargy. F9ound to be in CO2 retention. Dr. Garland's consult read and appreciated. Presentation c/w decompensation of COPD with hypercapnea. Now on Prednisone (60 mg), duoneb, ventolyn, symbicort, ceftriaxone and vibramicin. Pt. reports "feeling alot better" and "wants to go home." MING: Thin. No bruits, No head trauma. Diffuse upper body and facial bustos with Right elbow contracture due to skin tightening. NEURO: Awake alert cooperative. [facility], January 2019. Recalls 01/26/19 @ 3 mins. Trump Dysarthric speech CN: II-XII Normal. Eating reg diet without difficulty Motor: No drift or tremor. Normal strength. Normal reflexes except absent AJ's. Toes downgoing Coord: No FTN dystaxia Sensory: Reduced vibration both feet. Nl at ankles. IMP: Non-focal exam sig for mild OMS. Toxic-metabolic encephalopathy due to exacerbation of COPD and Hypercapnea-now improving. SUGGEST: Cont. antibiotics and Regimen for COPD CT of head (C-) Check B12, TSH, RPR. Thank you very much, Oleg Guillen MD
[2019-01-26] MEDS: DOXYCYCLINE HYCLATE 100 MG CAPSULE PO SCH (19:55)
--- NOTE | 2019-01-26 20:40 | PN ---
[facility] Progress Note (SOAP) Subjective: 78 y.o. male referred for consultation , currently on Methadone 70 mg qd . Pt is poor historian , does not volunteer information. 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 Active Medications Albuterol Sulfate (Ventolin Hfa Inhaler -) 2 puff IH QID PRN PRN Reason: ASTHMA Albuterol/Ipratropium (Duoneb -) 1 amp NEB Q4H PRN PRN Reason: SHORTNESS OF BREATH Atorvastatin Calcium (Lipitor -) 80 mg PO [facility] Budesonide/Formoterol Fumarate (Symbicort 160/4.5mcg -) 2 puff IH BID [facility] Last Admin: 01/26/19 10:32 Dose: Not Given Clopidogrel Bisulfate (Plavix -) 75 mg PO DAILY [facility] Last Admin: 01/26/19 10:31 Dose: 75 mg Doxycycline Hyclate (Vibramycin -) 100 mg PO BID@1000,1800 [facility] Last Admin: 01/26/19 19:55 Dose: 100 mg Enoxaparin Sodium (Lovenox -) 40 mg SQ DAILY [facility] Last Admin: 01/26/19 10:31 Dose: 40 mg Guaifenesin (Mucinex -) 600 mg PO BID [facility] Last Admin: 01/26/19 09:40 Dose: 600 mg Ceftriaxone Sodium 1 gm/ (Dextrose) 50 mls @ 100 mls/hr IVPB DAILY [facility]; Protocol Last Admin: 01/26/19 10:11 Dose: 100 mls/hr Methadone HCl 40 mg/ Methadone (HCl 30 mg) 70 mg PO DAILY@0600 [facility] Last Admin: 01/26/19 17:49 Dose: 70 mg Metoprolol Tartrate (Lopressor -) 25 mg PO BID [facility] Last Admin: 01/26/19 09:40 Dose: 25 mg Nicotine (Nicoderm Patch -) 21 mg TD DAILY [facility] Last Admin: 01/26/19 10:00 Dose: Not Given Polyethylene Glycol (Miralax (For Daily Use) -) 17 gm PO DAILY [facility] Last Admin: 01/26/19 10:00 Dose: Not Given Prednisone (Deltasone -) 60 mg PO DAILY [facility] Last Admin: 01/26/19 09:40 Dose: 60 mg Senna (Senna -) 2 tab PO [facility] Objective: thin , resting in bed . O2 FM No respiratory distress noted CBC, BMP 01/26/19 03:05 01/26/19 03:05 Vital Signs - 24 hr 01/25/19 01/26/19 01/26/19 21:27 02:54 03:45 Temperature Pulse Rate 73 Pulse Rate [ 82 Right Radial] Respiratory 20 Rate Blood Pressure Blood Pressure 133/87 [Right Arm] O2 Sat by Pulse 97 99 96 Oximetry (%) 01/26/19 01/26/19 01/26/19 07:10 08:36 10:00 Temperature 98.6 F Pulse Rate 92 H Pulse Rate [ 74 Right Radial] Respiratory 20 Rate Blood Pressure Blood Pressure 122/74 [Right Arm] O2 Sat by Pulse 100 100 100 Oximetry (%) 01/26/19 01/26/19 01/26/19 12:00 15:57 16:41 Temperature 97.9 F Pulse Rate 90 Pulse Rate [ Right Radial] Respiratory 18 Rate Blood Pressure 146/94 Blood Pressure [Right Arm] O2 Sat by Pulse 100 100 Oximetry (%) 01/26/19 17:30 Temperature 97.9 F Pulse Rate 65 Pulse Rate [ Right Radial] Respiratory 18 Rate Blood Pressure 108/69 Blood Pressure [Right Arm] O2 Sat by Pulse Oximetry (%) 01/26/19 20:40 Assessment: opioid dependence Plan: continue Methadone, hold for drowsiness/ lethargy, dose adjustments to be coordinated with the patient's MMTP .
[2019-01-26] MEDS: ATORVASTATIN CA 80 MG TABLET (FP) PO SCH (22:32)
[2019-01-26] MEDS: SENNOSIDES 8.6MG TABLET (FP) PO SCH (22:34)
[2019-01-27 04:12] LABS: SERUM IRON SATURATION 11 % (15-55); TOTAL IRON BINDING CAPACITY 269 ug/dL (250-450); UIBC 240 ug/dL (111-343)
[2019-01-27] MEDS: METHADONE 40 MG, METHADONE 30 MG PO SCH ×2 (06:17→16:41)
[2019-01-27 08:21] LABS: HEMATOCRIT 29.8 % (35.4-49); HEMOGLOBIN 9.6 GM/dL (11.7-16.9); MCH 27.5 pg (25.7-33.7); MCHC 32.1 g/dl (32.0-35.9); MEAN CELL VOLUME 85.6 fl (80-96); MEAN PLT VOLUME 7.6 fl (7.5-11.1); PLATELET COUNT 308 K/MM3 (134-434); RBC 3.48 M/mm3 (4.00-5.60); RDW 17.5 % (11.9-15.9); WHITE BLOOD COUNT 6.8 K/mm3 (4.0-10.0)
[2019-01-27 08:43] LABS: ALBUMIN 2.1 g/dl (3.4-5.0); ALK PHOS 63 U/L (45-117); ANION GAP 3 MMOL/L (8-16); BILIRUBIN,TOTAL 0.2 mg/dL (0.2-1); BLOOD UREA NITROGEN 26 mg/dL (7-18); CALCIUM 8.1 mg/dL (8.5-10.1); CHLORIDE 98 mmol/L (98-107); CO2 35 mmol/L (21-32); CREATININE 0.8 mg/dL (0.55-1.3); GLUCOSE,RANDOM 144 mg/dL (74-106); MAGNESIUM 2.1 mg/dL (1.8-2.4); PHOSPHOROUS 3.8 mg/dL (2.5-4.9); POTASSIUM 4.2 mmol/L (3.5-5.1); SGOT/AST 12 U/L (15-37); SGPT/ALT 11 U/L (13-61); SODIUM 137 mmol/L (136-145); TOT PROT 7.2 g/dl (6.4-8.2)
--- NOTE | 2019-01-27 10:00 | PN ---
Physical Exam: SUBJECTIVE: Patient seen and examined at bedside. No overnight events. No new complaints. Breathing is better today. He used NIPPV last night with no issues. Denies CP, AMIN, palpitations, abdominal pain, nausea or vomiting. OBJECTIVE: Vital Signs Period Temp Pulse Resp BP Sys/Joseph Pulse Ox Last 24 Hr 97.9 F-98 F 65-92 18-18 96-146/55-94 98-100 GENERAL: awake and alert, NAD EYES: PEERLA: EOMI; no scleral icterus NECK: no JVD: no lymphadenopathy. LUNGS:B/L diminished breath sounds. No wheezing or rhonchi. HEART: Regular rate and rhythm, S1, S2 without murmur, rub or gallop. ABDOMEN: Soft, nontender, nondistended, normoactive bowel sounds, no guarding, no rebound, no hepatosplenomegaly, no masses. EXTREMITIES: 2+ pulses, warm, well-perfused, no edema. PSYCH: Normal mood, normal affect. SKIN: Warm, dry, normal turgor, no rashes or lesions noted Laboratory Results - last 24 hr 01/26/19 01/26/19 01/26/19 09:15 09:15 09:15 WBC RBC Hgb Hct MCV MCH MCHC RDW Plt Count MPV PTT (Actin FS) 68.0 H Anticoagulation Therapy Puncture Site ABG pH ABG pCO2 at Pt Temp ABG pO2 at Pt Temp ABG HCO3 ABG O2 Sat (Measured) ABG O2 Content ABG Base Excess Luca Test O2 Delivery Device Oxygen Flow Rate Vent Mode Vent Rate Mechanical Rate Pressure Support Vent Sodium Potassium Chloride Carbon Dioxide Anion Gap BUN Creatinine Creat Clearance w eGFR Random Glucose Calcium Phosphorus 4.1 Magnesium Iron 29 L TIBC 269 Iron Saturation 11 L Ferritin Total Bilirubin AST ALT Alkaline Phosphatase Troponin I Total Protein Albumin Vitamin B12 Serum Folate TSH HIV Genotype 01/26/19 01/26/19 01/26/19 09:15 09:15 09:15 WBC RBC Hgb Hct MCV MCH MCHC RDW Plt Count MPV PTT (Actin FS) Anticoagulation Therapy Puncture Site ABG pH ABG pCO2 at Pt Temp ABG pO2 at Pt Temp ABG HCO3 ABG O2 Sat (Measured) ABG O2 Content ABG Base Excess Luca Test O2 Delivery Device Oxygen Flow Rate Vent Mode Vent Rate Mechanical Rate Pressure Support Vent Sodium Potassium Chloride Carbon Dioxide Anion Gap BUN Creatinine Creat Clearance w eGFR Random Glucose Calcium Phosphorus Magnesium Iron TIBC Iron Saturation Ferritin 27.0 Total Bilirubin AST ALT Alkaline Phosphatase Troponin I < 0.02 Total Protein Albumin Vitamin B12 Serum Folate TSH HIV Genotype Non reactive 01/26/19 01/27/19 01/27/19 09:43 06:30 06:30 WBC 6.8 RBC 3.48 L Hgb 9.6 L Hct 29.8 L MCV 85.6 MCH 27.5 MCHC 32.1 RDW 17.5 H Plt Count 308 MPV 7.6 PTT (Actin FS) Anticoagulation Therapy No Result Required. Puncture Site Right radial ABG pH 7.37 ABG pCO2 at Pt Temp 63.1 H ABG pO2 at Pt Temp 99.6 ABG HCO3 35.3 H ABG O2 Sat (Measured) 97.6 ABG O2 Content 13.2 L ABG Base Excess 8.8 H Luca Test Positive O2 Delivery Device No Result Required. Oxygen Flow Rate Yes Vent Mode No Result Required. Vent Rate No Result Required. Mechanical Rate No Result Required. Pressure Support Vent No Result Required. Sodium 137 Potassium 4.2 Chloride 98 Carbon Dioxide 35 H Anion Gap 3 L BUN 26 H Creatinine 0.8 Creat Clearance w eGFR 93.49 Random Glucose 144 H Calcium 8.1 L Phosphorus 3.8 Magnesium 2.1 Iron TIBC Iron Saturation Ferritin Total Bilirubin 0.2 AST 12 L ALT 11 L Alkaline Phosphatase 63 Troponin I Total Protein 7.2 Albumin 2.1 L Vitamin B12 866 Serum Folate 12 TSH 1.71 D HIV Genotype 01/27/19 06:30 WBC RBC Hgb Hct MCV MCH MCHC RDW Plt Count MPV PTT (Actin FS) Anticoagulation Therapy Puncture Site ABG pH ABG pCO2 at Pt Temp ABG pO2 at Pt Temp ABG HCO3 ABG O2 Sat (Measured) ABG O2 Content ABG Base Excess Luca Test O2 Delivery Device Oxygen Flow Rate Vent Mode Vent Rate Mechanical Rate Pressure Support Vent Sodium Potassium Chloride Carbon Dioxide Anion Gap BUN Creatinine Creat Clearance w eGFR Random Glucose Calcium Phosphorus Magnesium Iron TIBC Iron Saturation Ferritin Total Bilirubin AST ALT Alkaline Phosphatase Troponin I Total Protein Albumin Vitamin B12 Cancelled Serum Folate TSH HIV Genotype Active Medications Generic Name Dose Route Start Last Admin Trade Name Freq PRN Reason Stop Dose Admin Albuterol Sulfate 2 puff 01/26/19 02:40 Ventolin Hfa Inhaler - IH QID PRN ASTHMA Albuterol/Ipratropium 1 amp 03/22/19 02:45 Duoneb - NEB Q4H PRN SHORTNESS OF BREATH Atorvastatin Calcium 80 mg 01/26/19 22:00 01/26/19 22:32 Lipitor - PO 80 mg HS MAYA Administration Budesonide/Formoterol Fumarate 2 puff 01/26/19 10:00 01/26/19 22:50 Symbicort 160/4.5mcg - IH 2 puff BID [facility]A Administration Clopidogrel Bisulfate 75 mg 01/26/19 10:00 01/26/19 10:31 Plavix - PO 75 mg DAILY [facility] Administration Doxycycline Hyclate 100 mg 01/26/19 18:00 01/26/19 19:55 Vibramycin - PO 100 mg BID@1000,1800 [facility] Administration Enoxaparin Sodium 40 mg 01/26/19 10:00 01/26/19 10:31 Lovenox - SQ 40 mg DAILY [facility] Administration Guaifenesin 600 mg 01/26/19 10:00 01/26/19 22:34 Mucinex - PO 600 mg BID [facility] Administration Ceftriaxone Sodium 1 gm/ 50 mls @ 100 mls/hr 01/26/19 10:00 01/26/19 10:11 Dextrose IVPB 100 mls/hr DAILY [facility] Administration Protocol Methadone HCl 40 mg/ Methadone 70 mg 01/26/19 17:45 01/27/19 06:17 HCl 30 mg PO Not Given DAILY@0600 [facility] Metoprolol Tartrate 25 mg 01/26/19 10:00 01/26/19 22:32 Lopressor - PO Not Given BID [facility] Nicotine 21 mg 01/26/19 10:00 01/26/19 10:00 Nicoderm Patch - TD Not Given DAILY [facility] Polyethylene Glycol 17 gm 01/26/19 10:00 01/26/19 10:00 Miralax (For Daily Use) - PO Not Given DAILY [facility] Prednisone 60 mg 01/26/19 10:00 01/26/19 09:40 Deltasone - PO 60 mg DAILY [facility] Administration Senna 2 tab 01/26/19 22:00 01/26/19 22:34 Senna - PO 2 tab HS [facility] Administration ASSESSMENT/PLAN: 78 year old male (current smoker- 10 cigarettes per day), with PMH of heroin dependency 2-3 bags daily , HTN, HLD, COPD, 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 (3) Prolonged QT interval Assessment/Plan: most likely 2/2 methadone and heroin use. * avoid meds that can prolong QTc Visit type - Emergency Visit Emergency Visit: Yes ED Registration Date: 01/25/19 Care time: The patient presented to the Emergency Department on the above date and was hospitalized for further evaluation of their emergent condition. - New Patient This patient is new to me today: Yes Date on this admission: 01/27/19 - Critical Care Critical Care patient: No
[2019-01-27] MEDS ORDERED: PT OWN MED DRAWER 7, Y5N ONE (10:09)
[2019-01-27] MEDS ORDERED: cefTRIAXone SODIUM 1 GM VIAL ONE (10:09)
[2019-01-27] MEDS ORDERED: DEXTROSE 5%-WATER - 50 ML IVPB ONE (10:09)
[2019-01-27] MEDS: ENOXAPARIN NA (PORCINE) 40 MG/0.4 ML DISP.SYRIN SQ SCH (10:12)
[2019-01-27] MEDS: POLYETHYLENE GLYCOL 3350 119 GM BTL PO SCH (10:13)
[2019-01-27] MEDS: guaiFENesin 600 MG TABLET.ER (FP) PO SCH ×2 (10:14→22:03)
[2019-01-27] MEDS: CLOPIDOGREL BISULFATE 75 MG TABLET (FP) PO SCH (10:14)
[2019-01-27] MEDS: METOPROLOL TARTRATE 25 MG TABLET (FP) PO SCH ×2 (10:15→22:03)
[2019-01-27] MEDS: predniSONE 20 MG TABLET (UD) PO SCH (10:15)
[2019-01-27] MEDS: BUDESONIDE/FORMETEROL FUMARATE 160/4.5 mcg INHALER IH SCH ×2 (10:16→22:03)
[2019-01-27] MEDS: CEFTRIAXONE 1 GM in DEXTROSE 5%-WATER - 50 ML IVPB SCH (10:16)
[2019-01-27] MEDS: NICOTINE 21 MG/24 HOURS TOPICAL PATCH TD SCH (10:16)
[2019-01-27] MEDS: DOXYCYCLINE HYCLATE 100 MG CAPSULE PO SCH ×2 (10:17→17:33)
[2019-01-27 13:55] VITALS: BMI 17.7
--- NOTE | 2019-01-27 14:05 | PN ---
Teaching Attending Note Name of Resident: Hussain Recinos ATTENDING PHYSICIAN STATEMENT I saw and evaluated the patient. I reviewed the resident's note and discussed the case with the resident. I agree with the resident's findings and plan as documented. SUBJECTIVE: Feels better , no AMIN , no CP , no SOB . OBJECTIVE: NAD, awake, and cooperative Cv: RRR, no MRG, no JVD Lungs: decreased air entry bilaterally, no wheezing or crackles Ext: scarred skin with trace edema on legs. ASSESSMENT AND PLAN: 78 y/o man with h/o COPD, active smoking, active heroin use while on Methadone, CAD , s/p stenting, who presented with hypoxia . he was found to have acuete hypoxic hypercapnic respiratory failure 1- Acute hypoxic , hypercapnic resp failure due to acute COPD exacerbation. possible b/l PNA vs old scarring condition slightly improved - switch to NC to keep Sat O2 88-93 %. - cont steorids, Nebs , and Inhalers. - cont Abx - echo reviewed, mild reductionin EF, but he does not look fluid overloaded - cont to use BIPAP at night . 2- Heroin abuse. while on methadone 70 mg - will cont his home dose for now. -Appreciate Dr. Modi help, his dose to be adjusted as out pt 3- Prolonged QTC: due to methadone and heroin use. - avoid meds that can worsen it 4- Normocytic anemia: iron studies do not suggest iron def. B12, folate NL. f/u as out pt 5- severe protein calorie malnutrition 6- metabolic encephalopathy , due to hypercapnia , resolved. b12, RPR, TSH nl DVT PX PT eval HLOC
--- NOTE | 2019-01-27 14:17 | PN ---
Progress Note (short form) - Note Progress Note: PULMONARY VSS/AFEBRILE Constitutional: Yes: Cachectic, Poor Hygeine, Other (LETHARGIC) Eyes: Yes: EOM Intact HENT: Yes: Normocephalic Neck: Yes: Trachea Midline Cardiovascular: Yes: S1, S2 Respiratory: Yes: Diminished Gastrointestinal: Yes: Normal Bowel Sounds Edema: No Neurological: Yes: Lethargy, Pre-Existing Deficit, Weakness Labs/notes/images reviewed - Problems (1) Heroin addiction Code(s): F11.20 - OPIOID DEPENDENCE, UNCOMPLICATED (2) Acute hypercapnic respiratory failure Code(s): J96.02 - ACUTE RESPIRATORY FAILURE WITH HYPERCAPNIA (3) COPD (chronic obstructive pulmonary disease) Code(s): J44.9 - CHRONIC OBSTRUCTIVE PULMONARY DISEASE, UNSPECIFIED Qualifiers: COPD type: unspecified COPD Qualified Code(s): J44.9 - Chronic obstructive pulmonary disease, unspecified (4) Hepatitis C Code(s): B19.20 - UNSPECIFIED VIRAL HEPATITIS C WITHOUT HEPATIC COMA Qualifiers: Viral hepatitis chronicity: chronic (5) Nicotine dependence Code(s): F17.200 - NICOTINE DEPENDENCE, UNSPECIFIED, UNCOMPLICATED Qualifiers: Nicotine product type: cigarettes (6) Opioid dependence with withdrawal Code(s): F11.23 - OPIOID DEPENDENCE WITH WITHDRAWAL Assessment/Plan ACUTE ON CHRONIC HYPERCAPNEIC RESP FAILURE COPD/ACTIVE SMOKER HERION ABUSE/METHADONE MAINTENANCE ASHD/CAD S/P PCI STENT WILL LIKELY NEED NIPPV/O2 SUPPLEMENTATION/BRONCHODILATION/TAPER STEROIDS/ TRIAL OF ANTIBIOTICS/AVOID OVERSEDATION/DVT PROPHYLAXSIS Arnie MONTERROSO MD Problem List - Problems (1) Heroin addiction Code(s): F11.20 - OPIOID DEPENDENCE, UNCOMPLICATED (2) Acute hypercapnic respiratory failure Code(s): J96.02 - ACUTE RESPIRATORY FAILURE WITH HYPERCAPNIA (3) COPD (chronic obstructive pulmonary disease) Code(s): J44.9 - CHRONIC OBSTRUCTIVE PULMONARY DISEASE, UNSPECIFIED Qualifiers: COPD type: unspecified COPD Qualified Code(s): J44.9 - Chronic obstructive pulmonary disease, unspecified (4) Hepatitis C Code(s): B19.20 - UNSPECIFIED VIRAL HEPATITIS C WITHOUT HEPATIC COMA Qualifiers: Viral hepatitis chronicity: chronic (5) Nicotine dependence Code(s): F17.200 - NICOTINE DEPENDENCE, UNSPECIFIED, UNCOMPLICATED Qualifiers: Nicotine product type: cigarettes (6) Opioid dependence with withdrawal Code(s): F11.23 - OPIOID DEPENDENCE WITH WITHDRAWAL
[2019-01-27] MEDS: ALBUTEROL SO4 2.5/IPRATROPIUM 0.5 INH SOL 3 ML VIAL.NEB. NEB SCH ×2 (15:52→21:55)
[2019-01-27] MEDS ORDERED: METHADONE HCL 10 MG TABLET ONE (16:37)
[2019-01-27] MEDS ORDERED: METHADONE HCL 40 MG DISPERSABLE TABLET ONE (16:37)
--- NOTE | 2019-01-27 17:00 | EKG ---
Test Reason : Blood Pressure : / mmHG Vent. Rate : 064 BPM Atrial Rate : 064 BPM P-R Int : 176 ms QRS Dur : 086 ms QT Int : 522 ms P-R-T Axes : 064 076 085 degrees QTc Int : 538 ms NORMAL SINUS RHYTHM LVH MAY BE PRESENT BY VOLTAGE CRITERIA POSSIBLE LEFT ATRIAL ENLARGEMENT PROLONGED QT ABNORMAL ECG WHEN COMPARED WITH ECG OF 26-JAN-2019 02:56, NO SIGNIFICANT CHANGE WAS FOUND Confirmed by GLORIA MENDEZ, ABI ([id number]) on 01/27/2019 4:59:55 PM Referred By: Confirmed By:ABI CASTRO MD
[2019-01-27] MEDS: ATORVASTATIN CA 80 MG TABLET (FP) PO SCH (22:03)
[2019-01-27] MEDS: SENNOSIDES 8.6MG TABLET (FP) PO SCH (22:03)
[2019-01-28] MEDS ORDERED: METHADONE HCL 10 MG TABLET ONE (05:51)
[2019-01-28] MEDS ORDERED: METHADONE HCL 40 MG DISPERSABLE TABLET ONE (05:51)
[2019-01-28] MEDS: METHADONE 40 MG, METHADONE 30 MG PO SCH (05:52)
[2019-01-28] MEDS: ALBUTEROL SO4 2.5/IPRATROPIUM 0.5 INH SOL 3 ML VIAL.NEB. NEB SCH ×4 (08:08→20:02)
[2019-01-28 08:26] LABS: ANION GAP 4 MMOL/L (8-16); BLOOD UREA NITROGEN 36 mg/dL (7-18); CALCIUM 8.1 mg/dL (8.5-10.1); CHLORIDE 99 mmol/L (98-107); CO2 35 mmol/L (21-32); CREATININE 0.9 mg/dL (0.55-1.3); GLUCOSE,RANDOM 78 mg/dL (74-106); POTASSIUM 4.7 mmol/L (3.5-5.1); SODIUM 138 mmol/L (136-145)
[2019-01-28 08:57] LABS: BASO % 0.5 % (0-2.0); EOS % 0.1 % (0-4.5); HEMATOCRIT 32.8 % (35.4-49); HEMOGLOBIN 10.5 GM/dL (11.7-16.9); LYMPH % 16.6 % (8-40); MCH 27.9 pg (25.7-33.7); MCHC 31.8 g/dl (32.0-35.9); MEAN CELL VOLUME 87.6 fl (80-96); MEAN PLT VOLUME 8.1 fl (7.5-11.1); MONO % 9.5 % (3.8-10.2); NEUT % 73.3 % (42.8-82.8); PLATELET COUNT 261 K/MM3 (134-434); RBC 3.75 M/mm3 (4.00-5.60); RDW 17.3 % (11.9-15.9); WHITE BLOOD COUNT 10.7 K/mm3 (4.0-10.0)
[2019-01-28] MEDS ORDERED: PT OWN MED DRAWER 7, Y5N ONE ×2 (09:12→18:05)
[2019-01-28] MEDS ORDERED: DEXTROSE 5%-WATER - 50 ML IVPB ONE (09:13)
[2019-01-28] MEDS ORDERED: cefTRIAXone SODIUM 1 GM VIAL ONE (09:13)
[2019-01-28] MEDS: METOPROLOL TARTRATE 25 MG TABLET (FP) PO SCH ×2 (09:18→22:15)
[2019-01-28] MEDS: guaiFENesin 600 MG TABLET.ER (FP) PO SCH ×2 (09:18→22:15)
[2019-01-28] MEDS: CLOPIDOGREL BISULFATE 75 MG TABLET (FP) PO SCH (09:18)
[2019-01-28] MEDS: predniSONE 20 MG TABLET (UD) PO SCH (09:19)
[2019-01-28] MEDS: DOXYCYCLINE HYCLATE 100 MG CAPSULE PO SCH ×2 (09:20→18:08)
[2019-01-28] MEDS: ENOXAPARIN NA (PORCINE) 40 MG/0.4 ML DISP.SYRIN SQ SCH (09:20)
[2019-01-28] MEDS: CEFTRIAXONE 1 GM in DEXTROSE 5%-WATER - 50 ML IVPB SCH (09:21)
[2019-01-28] MEDS: NICOTINE 21 MG/24 HOURS TOPICAL PATCH TD SCH (09:21)
[2019-01-28] MEDS: POLYETHYLENE GLYCOL 3350 119 GM BTL PO SCH (09:32)
[2019-01-28] MEDS: BUDESONIDE/FORMETEROL FUMARATE 160/4.5 mcg INHALER IH SCH (10:00)
[2019-01-28] MEDS ORDERED: predniSONE 20 MG TABLET (UD) PO SCH (11:16)
--- NOTE | 2019-01-28 11:16 | PN ---
Progress Note (short form) - Note Progress Note: PULMONARY VSS/AFEBRILE Constitutional: Yes: Cachectic, Poor Hygeine, Other (LETHARGIC) Eyes: Yes: EOM Intact HENT: Yes: Normocephalic Neck: Yes: Trachea Midline Cardiovascular: Yes: S1, S2 Respiratory: Yes: Diminished Gastrointestinal: Yes: Normal Bowel Sounds Edema: No Neurological: Yes: Lethargy, Pre-Existing Deficit, Weakness Labs/notes/images reviewed - Problems (1) Heroin addiction Code(s): F11.20 - OPIOID DEPENDENCE, UNCOMPLICATED (2) Acute hypercapnic respiratory failure Code(s): J96.02 - ACUTE RESPIRATORY FAILURE WITH HYPERCAPNIA (3) COPD (chronic obstructive pulmonary disease) Code(s): J44.9 - CHRONIC OBSTRUCTIVE PULMONARY DISEASE, UNSPECIFIED Qualifiers: COPD type: unspecified COPD Qualified Code(s): J44.9 - Chronic obstructive pulmonary disease, unspecified (4) Hepatitis C Code(s): B19.20 - UNSPECIFIED VIRAL HEPATITIS C WITHOUT HEPATIC COMA Qualifiers: Viral hepatitis chronicity: chronic (5) Nicotine dependence Code(s): F17.200 - NICOTINE DEPENDENCE, UNSPECIFIED, UNCOMPLICATED Qualifiers: Nicotine product type: cigarettes (6) Opioid dependence with withdrawal Code(s): F11.23 - OPIOID DEPENDENCE WITH WITHDRAWAL Assessment/Plan ACUTE ON CHRONIC HYPERCAPNEIC RESP FAILURE COPD/ACTIVE SMOKER HERION ABUSE/METHADONE MAINTENANCE ASHD/CAD S/P PCI STENT NIPPV/O2 SUPPLEMENTATION/BRONCHODILATION/TAPERING STEROIDS/ AVOID OVERSEDATION/DVT PROPHYLAXSIS Arnie MONTERROSO MD Problem List - Problems (1) Heroin addiction Code(s): F11.20 - OPIOID DEPENDENCE, UNCOMPLICATED (2) Acute hypercapnic respiratory failure Code(s): J96.02 - ACUTE RESPIRATORY FAILURE WITH HYPERCAPNIA (3) COPD (chronic obstructive pulmonary disease) Code(s): J44.9 - CHRONIC OBSTRUCTIVE PULMONARY DISEASE, UNSPECIFIED Qualifiers: COPD type: unspecified COPD Qualified Code(s): J44.9 - Chronic obstructive pulmonary disease, unspecified (4) Hepatitis C Code(s): B19.20 - UNSPECIFIED VIRAL HEPATITIS C WITHOUT HEPATIC COMA Qualifiers: Viral hepatitis chronicity: chronic (5) Nicotine dependence Code(s): F17.200 - NICOTINE DEPENDENCE, UNSPECIFIED, UNCOMPLICATED Qualifiers: Nicotine product type: cigarettes (6) Opioid dependence with withdrawal Code(s): F11.23 - OPIOID DEPENDENCE WITH WITHDRAWAL
--- NOTE | 2019-01-28 15:03 | PN ---
Progress Note (short form) - Note Progress Note: Subjective: no fever or chills. breathing is better Objective: Vital Signs: Last Vital Signs Temp Pulse Resp BP Pulse Ox 98.6 F 72 18 114/63 97 01/28/19 10:00 01/28/19 10:00 01/28/19 10:00 01/28/19 10:00 01/28/19 09:00 Laboratory Results - last 24 hr 01/28/19 01/28/19 07:00 07:00 WBC 10.7 H RBC 3.75 L Hgb 10.5 L Hct 32.8 L MCV 87.6 MCH 27.9 MCHC 31.8 L RDW 17.3 H Plt Count 261 MPV 8.1 Absolute Neuts (auto) 7.8 Neutrophils % 73.3 Lymphocytes % 16.6 Monocytes % 9.5 Eosinophils % 0.1 D Basophils % 0.5 Nucleated RBC % 0 Sodium 138 Potassium 4.7 Chloride 99 Carbon Dioxide 35 H Anion Gap 4 L BUN 36 H Creatinine 0.9 Creat Clearance w eGFR 81.61 Random Glucose 78 Calcium 8.1 L Physical Exam: NAD, awake, and cooperative Cv: RRR, no MRG, no JVD Lungs: decreased air entry bilaterally, no wheezing or crackles Ext: scarred skin with trace edema on legs. ASSESSMENT AND PLAN: 78 y/o man with h/o COPD, active smoking, active heroin use while on Methadone, CAD , s/p stenting, who presented with hypoxia . he was found to have acuete hypoxic hypercapnic respiratory failure 1- Acute hypoxic , hypercapnic resp failure due to acute COPD exacerbation. possible b/l PNA vs old scarring condition slightly improved - cont NC - cont steorids ( dose decreased today ) , Nebs , and Inhalers. - cont Abx - cont to use BIPAP at night . - pre and post tomorrow 2- Heroin abuse. while on methadone 70 mg - will cont his home dose for now. -Appreciate Dr. Modi help, his dose to be adjusted as out pt 3- Prolonged QTC: due to methadone and heroin use. - avoid meds that can worsen it 4- Normocytic anemia: iron studies do not suggest iron def. B12, folate NL. f/u as out pt 5- severe protein calorie malnutrition 6- metabolic encephalopathy , due to hypercapnia , resolved. b12, RPR, TSH nl DVT PX , and pre-post. ? dc tomorrow Visit type - Emergency Visit Emergency Visit: Yes ED Registration Date: 01/25/19 Care time: The patient presented to the Emergency Department on the above date and was hospitalized for further evaluation of their emergent condition. - New Patient This patient is new to me today: No - Critical Care Critical Care patient: No
[2019-01-28] MEDS ORDERED: INSULIN (NOVOLOG) ASPART 100 UNITS/ML 10ML VIAL ONE (17:13)
[2019-01-28] MEDS: SENNOSIDES 8.6MG TABLET (FP) PO SCH (22:15)
[2019-01-28] MEDS: ATORVASTATIN CA 80 MG TABLET (FP) PO SCH (22:15)
[2019-01-29] MEDS: BUDESONIDE/FORMETEROL FUMARATE 160/4.5 mcg INHALER IH SCH ×2 (04:14→11:16)
[2019-01-29] MEDS ORDERED: METHADONE HCL 40 MG DISPERSABLE TABLET ONE (06:05)
[2019-01-29] MEDS ORDERED: METHADONE HCL 10 MG TABLET ONE (06:05)
[2019-01-29] MEDS: METHADONE 40 MG, METHADONE 30 MG PO SCH (06:06)
[2019-01-29 07:37] LABS: BASO % 0.3 % (0-2.0); HEMATOCRIT 30.8 % (35.4-49); HEMOGLOBIN 9.9 GM/dL (11.7-16.9); LYMPH % 20.5 % (8-40); MCH 28.1 pg (25.7-33.7); MCHC 32.1 g/dl (32.0-35.9); MEAN CELL VOLUME 87.6 fl (80-96); MEAN PLT VOLUME 7.7 fl (7.5-11.1); MONO % 7.9 % (3.8-10.2); NEUT % 71.3 % (42.8-82.8); PLATELET COUNT 310 K/MM3 (134-434); RBC 3.51 M/mm3 (4.00-5.60); RDW 17.5 % (11.9-15.9); WHITE BLOOD COUNT 7.9 K/mm3 (4.0-10.0)
[2019-01-29] MEDS: ALBUTEROL SO4 2.5/IPRATROPIUM 0.5 INH SOL 3 ML VIAL.NEB. NEB SCH ×2 (07:52→11:43)
--- NOTE | 2019-01-29 10:15 | CONSULT ---
Admitting History and Physical - Past Medical History Cardiovascular: Yes: CAD, Other (STENTS) Pulmonary: Yes: COPD, Pneumonia. No: O2 Dependent Heme/Onc: Yes: Anemia Psych: Yes: Addictions - Smoking History Smoking history: Current every day smoker Have you smoked in the past 12 months: Yes Aproximately how many cigarettes per day: 10 - Alcohol/Substance Use Hx Alcohol Use: No - Social History History of Recent Travel: No History - Admission Reason For Visit: ACUTE RESPIRATORY FAILURE - Hearing Hearing: Normal Speech Evaluation - Communication Primary Language: SWEDISH Communication: Yes: Simple Responses, Dysarthria Oral Expression Ability: Yes: Mild Impairment (Reduced articulation, slurred speech WFL for single words) - Speech Production Dysarthria: Yes: Flaccid Apraxia: No Able to Make Needs Known: Yes: Mildly Impaired Intelligibility: Yes: Moderately Impaired (with long phrases and sentences) - Speech Characteristics Voice Loudness: Normal Voice Pitch: Yes: Normal Voice Phonatory-based Quality: Yes: Normal Speech Pattern: Impaired Speech Clarity: < 50% Nasal Resonance: Normal Articulation: Yes: Imprecise Rate of Speech: Too Slow Voice Comment: Impaired speech, reduced articulation. Cough occassionally observed - Language/Auditory Comprehension Follows: Yes: 1 Stage Simple Commands (WFL), 2 Stage Simple Commands (WFL), Complex Commands (WFL) Observation: Able to respond to yes/no queries: Yes, Yes/No Confusion: No, Comprehends Conversational Speech: Yes, Benefits from Slow Speech: No, Benefits from Repetiton: No, Benefits from Increased Volume of Speech: No - Language/Verbal Expression Able to Respond to Simple Queries: Yes: WNL Able to Communicate Wants and Needs: Yes: WNL Functional Communication Status: Yes: WNL Aware of Errors: Yes Attempts to Correct Errors: Yes Use of Gestures: No Written Expression: Not examined Oral Expression: Disordered secondary to dysarthria. Reading Comprehension: Not examined Calculations: Not examined Attention: Yes: Intact - Memory/Perception buttermaker Memory: Yes: WNL Short Term Memory: Yes: WNL - Swallow Evaluation/Bedside Assessment Current Nutritional Intake: Regular (heart healthy), Thin Liquids Tracheostomy Present: No Patient on Ventilator: No Dentition: Yes: Adequate (fair condition), Edentulous, Missing Teeth Facial Symmetry at Rest: Symmetrical Facial Symmetry on Retraction: Symmetrical Facial Movement: Controlled Sensation: Normal Facial Comment: WFL for speech and swallowing purposes. Jaw Position: Closed at Rest Against Resistance Opening: Normal Against Resistance Closing: Normal Pucker Lips: Normal Smile: Normal Lips, Comment: WFL for speech and swallowing purposes. Lingual Movement: Normal Lingual Speed of Movement: Normal Lingual Movement Strgth Against Opposition: Normal Lingual Movement Characteristics: Normal Lingual Comment: WFL for speech and swallowing purposes. Soft Palate Description: Normal Color Hard Palate Description: Normal Color Gag Reflex: Strong Bite Reflex: Present Velopharyngeal Movement: Normal Laryngeal Elevation: WFL Needs Assistance: No Rate of Intake: WFL Bolus Size: WFL Sensation: Bite Reflex (WFL) Labial Seal: WFL Chewing: WFL Oral Prep Time: WFL A-P Transit: WFL Pocketing: None Timing of Swallow: WFL Coughing/Throat Clear: No Change in Voice: No Other Findings/Remarks: 78 yo male seen during breakfast at bedside for swallow eval to r/o dysphagia. Pt is verbal (reduced intelligibility), A&Ox2, somewhat cooperative. PMHX includes SOB, COPD, heroin dependence CHF? Vocal quality is WFL with reduced precise articulation. Airway protection appears adequate. Current diet heart healthy solids with thin liquids. Pt given po trials of regular solids & pureed during breakfast without assistance revealed good acceptance, adequate bolus formation and transport, pharyngeal swallows appears timely with no changes in respiration or voicing. Thin liquid trials via cup and straw were unremarkable for dysphagia and or aspiration at bedside at this time. Recommendations - Speech Evaluation, Impression/Plan Impression: 78 yo male is able to tolerate puree, regular heart healthy solids with thin liquids without s/s of aspiration at bedside at this time. Speech intelligibility is reduced. Vocal quality, intonation are WFL Mcfp Goals: tolerate the least restrictive diet without s/s of aspiration Short Term Goals: tolerate heart healthy solids with thin liquids without s/s of aspiration. - Dysphagia Impressions/Plan Swallowing Skills: WF Dysphagia Impressions: Minimal Impairment, Risk of Aspiration (monitor secondary to SOB, COPD dx) *Silent aspiration: cannot be R/O at bedside Dysphagia Treatment Plan: Small Bites, Elevate HOB during feed, OOB for meals, Other (monitor pulmonary status) Dysphagia Evaluation Summary: Continue heart healthy solids with thin liquids as tolerate. Observed standard precautions. Oral care after meals. Meds can be given whole with water. Results given to charge master specialist and PCP via chart. GUN NUMBER to follow up. - Recommendations Diet Consistency: Dietary Restrictions/MD (heart healthy solids) Medication Administration: Whole with water Liquids: Thin Liquids
[2019-01-29] MEDS ORDERED: PT OWN MED DRAWER 7, Y5N ONE ×2 (11:01→12:36)
[2019-01-29] MEDS ORDERED: cefTRIAXone SODIUM 1 GM VIAL ONE (11:01)
[2019-01-29] MEDS ORDERED: DEXTROSE 5%-WATER - 50 ML IVPB ONE (11:02)
[2019-01-29] MEDS: ENOXAPARIN NA (PORCINE) 40 MG/0.4 ML DISP.SYRIN SQ SCH (11:04)
[2019-01-29] MEDS: CLOPIDOGREL BISULFATE 75 MG TABLET (FP) PO SCH (11:04)
[2019-01-29] MEDS: guaiFENesin 600 MG TABLET.ER (FP) PO SCH (11:04)
[2019-01-29] MEDS: CEFTRIAXONE 1 GM in DEXTROSE 5%-WATER - 50 ML IVPB SCH (11:05)
[2019-01-29] MEDS: DOXYCYCLINE HYCLATE 100 MG CAPSULE PO SCH (11:05)
[2019-01-29] MEDS: NICOTINE 21 MG/24 HOURS TOPICAL PATCH TD SCH (11:05)
[2019-01-29] MEDS: METOPROLOL TARTRATE 25 MG TABLET (FP) PO SCH (11:05)
--- NOTE | 2019-01-29 11:35 | PN ---
Progress Note (short form) - Note Progress Note: PULMONARY Denies shortness of breath, cough or wheezing. Vital Signs Period Temp Pulse Resp BP Sys/Joseph Pulse Ox Last 24 Hr 97.8 F-98.0 F 62-72 18-20 102-123/58-75 92-98 Gen: NAD, disheveled Heart: RRR Lung: distant breath sounds, no wheezes Abd: soft, nontender Ext: no edema CBC, BMP 01/29/19 06:40 01/28/19 07:00 Active Medications Albuterol/Ipratropium (Duoneb -) 1 amp NEB Q4H PRN PRN Reason: SHORTNESS OF BREATH Albuterol/Ipratropium (Duoneb -) 1 amp NEB RQID [facility] Last Admin: 01/29/19 07:52 Dose: Not Given Atorvastatin Calcium (Lipitor -) 80 mg PO HS [facility] Last Admin: 01/28/19 22:15 Dose: 80 mg Budesonide/Formoterol Fumarate (Symbicort 160/4.5mcg -) 2 puff IH BID [facility] Last Admin: 01/29/19 11:16 Dose: 2 puff Clopidogrel Bisulfate (Plavix -) 75 mg PO DAILY [facility] Last Admin: 01/29/19 11:04 Dose: 75 mg Doxycycline Hyclate (Vibramycin -) 100 mg PO BID@1000,1800 [facility] Last Admin: 01/29/19 11:05 Dose: 100 mg Enoxaparin Sodium (Lovenox -) 40 mg SQ DAILY [facility] Last Admin: 01/29/19 11:04 Dose: 40 mg Guaifenesin (Mucinex -) 600 mg PO BID [facility] Last Admin: 01/29/19 11:04 Dose: 600 mg Ceftriaxone Sodium 1 gm/ (Dextrose) 50 mls @ 100 mls/hr IVPB DAILY [facility]; Protocol Last Admin: 01/29/19 11:05 Dose: 100 mls/hr Methadone HCl 40 mg/ Methadone (HCl 30 mg) 70 mg PO DAILY@0600 [facility] Last Admin: 01/29/19 06:06 Dose: 70 mg Metoprolol Tartrate (Lopressor -) 25 mg PO BID [facility] Last Admin: 01/29/19 11:05 Dose: 25 mg Nicotine (Nicoderm Patch -) 21 mg TD DAILY [facility] Last Admin: 01/29/19 11:05 Dose: 21 mg Polyethylene Glycol (Miralax (For Daily Use) -) 17 gm PO DAILY [facility] Last Admin: 01/28/19 09:32 Dose: 17 gm Prednisone (Deltasone -) 40 mg PO DAILY [facility] Last Admin: 01/29/19 11:04 Dose: 40 mg Senna (Senna -) 2 tab PO HS [facility] Last Admin: 01/28/19 22:15 Dose: 2 tab A/P Acute on Chronic Hypoxic and Hypercapneic Respiratory Failure Acute COPD Exacerbation CAD Heroin Abuse Smoker - prednisone taper - inhaled bronchodilators - O2 to keep SpO2 >90% - check ambulatory SpO2 on room air to assess for home O2 - DVT prophylaxis - can d/c home from pulmonary standpoint on prednisone taper and inhaled bronchodilators - smoking cessation
[2019-01-29 12:08] VITALS: TEMP 97.3
--- NOTE | 2019-01-29 13:02 | DS ---
Physical Exam: SUBJECTIVE: Patient seen and examined OBJECTIVE: Vital Signs Period Temp Pulse Resp BP Sys/Joseph Pulse Ox Last 24 Hr 97.3 F-98.0 F 62-72 18-20 102-123/58-75 92-98 PHYSICAL EXAM GENERAL: The patient is awake, alert, and fully oriented, in no acute distress. HEAD: Normal with no signs of trauma. EYES: PERRL, extraocular movements intact, sclera anicteric, conjunctiva clear. ENT: Ears normal, nares patent, oropharynx clear without exudates, moist mucous membranes. NECK: Trachea midline, full range of motion, supple. LUNGS: Breath sounds equal, clear to auscultation bilaterally, no wheezes, no crackles, no accessory muscle use. HEART: Regular rate and rhythm, S1, S2 without murmur, rub or gallop. ABDOMEN: Soft, nontender, nondistended, normoactive bowel sounds, no guarding, no rebound, no hepatosplenomegaly, no masses. EXTREMITIES: 2+ pulses, warm, well-perfused, no edema. NEUROLOGICAL: Cranial nerves II through XII grossly intact. Normal speech, gait not observed. PSYCH: Normal mood, normal affect. SKIN: Warm, dry, normal turgor, no rashes or lesions noted. LABS Laboratory Results - last 24 hr 01/29/19 06:40 WBC 7.9 RBC 3.51 L Hgb 9.9 L Hct 30.8 L MCV 87.6 MCH 28.1 MCHC 32.1 RDW 17.5 H Plt Count 310 MPV 7.7 Absolute Neuts (auto) 5.6 Neutrophils % 71.3 Lymphocytes % 20.5 D Monocytes % 7.9 Eosinophils % 0.0 D Basophils % 0.3 Nucleated RBC % 0 HOSPITAL COURSE: Date of Admission:01/25/19 patient qualifies for portable oxygen to be used at home. 78 y/o male with PMH of COPD, heroin use on methaodne, CAD s/p stent, who presented with hypoxia and was found to have acute hypoxic hypercapnic respiratory failure. he was started on IV solumedor; duonebs and BIPAP when needed he was then transitioned to nasal canuala. he was started on a steroid taper with improevemtn in his respiraotory status - he was also seen by lynne bales as his mental status was waxing and waning likely 2/2 hypercapnea so he was placed back on BIPAP and in addition will liekly need change in metahdone dose- he was d/c home with home o2 as he qualified given his pre and post also home with PT as he refused SNF Date of Discharge: 01/29/19 Minutes to complete discharge: 39 Discharge Summary Reason For Visit: ACUTE RESPIRATORY FAILURE Current Active Problems Heroin addiction (Chronic) Condition: Improved - Instructions Diet, Activity, Other Instructions: You came to the hospital with complaints of trouble breathing likely due to an exacerbation of your chronic obstructive pulmonary disease. You were seen by a equipment validation specialist, we have been treating you with steroids and your symptoms have improved. In addition, you were seen by an data warehouse specialist you feels your Methadone dosing needs to be adjusted. We are also setting up for you to have oxygen at home. With having oxygen at home you cannot smoke. Use 1 liter of oxygen at reast and 2-3 Liters with ambulation Please continue taking your home medications in addition: Please take the Vantin 200mg twice a day for tomorrow We are also sending you home on a Prednisone taper: 40mg on (01/30-) 30mg (02/03-02/06) 20mg (02/07-02/10) 10mg (02/11-02/14) END: Please follow up with Dr. Garland, the equipment validation specialist within one week Please follow up with your primary care physician within one week and have iron studies done as your blood level was low in the hospital *if you begin to experience worsening shortness of breath, chest pains, fevers, please return to the emergency room immediately Referrals: Buck Garland MD [Staff Physician] - 1 Week Shiloh Modi DO [Staff Physician] - 1 Week Disposition: HOME - Home Medications Comprehensive Discharge Medication List: Ambulatory Orders Albuterol Sulfate Inhaler - [Ventolin HFA Inhaler -] 1 - 2 inh PO QID PRN Atorvastatin Calcium 80 mg PO DAILY 01/26/19 Clopidogrel Bisulfate [Plavix -] 75 mg PO DAILY 01/26/19 Ferrous Sulfate 325 mg PO ASDIR 01/26/19 Furosemide [Lasix -] 40 mg PO DAILY 01/26/19 Metoprolol Tartrate [Lopressor -] 25 mg PO BID 01/26/19 Multivitamins [Multivit ([facility] Formulary)] 1 tab PO DAILY 01/26/19 Cefpodoxime Proxetil [Vantin -] 200 mg PO Q12H #2 tablet 01/29/19 predniSONE [Deltasone -] See Taper PO DAILY 16 Days tablet 01/29/19 Problem List - Problems (1) Acute hypercapnic respiratory failure Code(s): J96.02 - ACUTE RESPIRATORY FAILURE WITH HYPERCAPNIA (2) COPD (chronic obstructive pulmonary disease) Code(s): J44.9 - CHRONIC OBSTRUCTIVE PULMONARY DISEASE, UNSPECIFIED Qualifiers: COPD type: unspecified COPD Qualified Code(s): J44.9 - Chronic obstructive pulmonary disease, unspecified (3) Hepatitis C Code(s): B19.20 - UNSPECIFIED VIRAL HEPATITIS C WITHOUT HEPATIC COMA Qualifiers: Viral hepatitis chronicity: chronic (4) Nicotine dependence Code(s): F17.200 - NICOTINE DEPENDENCE, UNSPECIFIED, UNCOMPLICATED Qualifiers: Nicotine product type: cigarettes This patient is new to me today: No Emergency Visit: Yes ED Registration Date: 01/25/19 Care time: The patient presented to the Emergency Department on the above date and was hospitalized for further evaluation of their emergent condition. Critical Care patient: No - Discharge Referral Referred to [facility] Med P.C.: No
[2019-01-29 14:39] VITALS: BP 93/51; PULSE 62
[2019-01-29] MEDS: POLYETHYLENE GLYCOL 3350 119 GM BTL PO SCH (14:43)
--- NOTE | 2019-01-29 17:23 | PN ---
Teaching Attending Note Name of Resident: Nena Waldron ATTENDING PHYSICIAN STATEMENT I saw and evaluated the patient. I reviewed the resident's note and discussed the case with the resident. I agree with the resident's findings and plan as documented. SUBJECTIVE: No fever or chills. No AMIN , NO SOB. OBJECTIVE: NAD, awake, and cooperative Cv: RRR, no MRG, no JVD Lungs: imporved air entry in upper lobes, and decreased half way down, no wheezing Ext: scarred skin with trace edema on legs. ASSESSMENT AND PLAN: 78 y/o man with h/o COPD, active smoking, active heroin use while on Methadone, CAD , s/p stenting, who presented with hypoxia . he was found to have acuete hypoxic hypercapnic respiratory failure 1- Acute hypoxic , hypercapnic resp failure due to acute COPD exacerbation. possible b/l PNA vs old scarring condition slightly improved - cont NC. need 1 L of O2 at rest ( as 2 L increased his sats to 97%). requirements with ambulation could not be assessed as he did not walk. will instruct to use 2-3 L with ambulationif he does. - he was instructed not to smoke to avoid facial /whole body bustos. he said he already quit smoking - ocnt steroid taer at dc - Abx for one more day at dc to complete 5 days of treatment - f/u with pulm as out pt 2- Heroin abuse. while on methadone 70 mg - will cont his home dose for now. f/u with his methadone clinic as out pt 3- Prolonged QTC: due to methadone and heroin use. 4- Normocytic anemia: iron studies do not suggest iron def. B12, folate NL. f/u as out pt 5- severe protein calorie malnutrition 6- metabolic encephalopathy , due to hypercapnia , resolved. dispo : DC home. refused rehab. o2 arranged
== END 2019-01-29 17:22 | disposition home or self-care (01) | DRG 189 ==
LOC: JER 18:04 → JERBED 21:51 → J5S 01-26 12:54
PROVIDERS: ADMIT Internal Medicine; ATTEND Internal Medicine
DX: J96.22 Acute and chronic respiratory failure with hypercapnia (principal); G92 Toxic encephalopathy; J18.9 Pneumonia, unspecified organism; E43 Unspecified severe protein-calorie malnutrition; F11.20 Opioid dependence, uncomplicated; J44.1 Chronic obstructive pulmonary disease with (acute) exacerbation; R64 Cachexia; Z68.1 Body mass index [BMI] 19.9 or less, adult; I10 Essential (primary) hypertension; J96.21 Acute and chronic respiratory failure with hypoxia; F14.10 Cocaine abuse, uncomplicated; E88.09 Other disorders of plasma-protein metabolism, not elsewhere classified; D64.9 Anemia, unspecified; I25.10 Atherosclerotic heart disease of native coronary artery without angina pectoris; I45.81 Long QT syndrome; E16.2 Hypoglycemia, unspecified; E78.5 Hyperlipidemia, unspecified; F17.210 Nicotine dependence, cigarettes, uncomplicated; G62.9 Polyneuropathy, unspecified; K59.00 Constipation, unspecified; B18.2 Chronic viral hepatitis C
CPT/HCPCS: 36415; 36600; 71045-TC-FY; 71250-TC; 80048; 80053; 82375; 82550; 82607; 82728; 82746; 82803; 82962; 83050; 83540; 83550; 83735; 83880; 84100; 84443; 84484; 85025; 85027; 85610; 85730; 86593; 87389; 87522; 87804; 87807; 87899; 93005; 93010; 93306-TC; 94640; 94660; 94761; 97116-GP; 97161-GP; 99285-25